=== PATIENT | male | born 1995 | race American Indian/Alaskan Native ===

== ENCOUNTER 2017-06-06 13:28 | Emergency (ER) | payer OTHER ==
[2017-06-06 13:38] VITALS: BP 127/90
--- NOTE | 2017-06-06 15:10 | XRay Report ---
FINAL REPORT EXAM: XR RIBS UNILAT 2V RT HISTORY: rib injury TECHNIQUE: PA view of the chest and 3 views of the right ribs PRIORS: None. FINDINGS: There is no evidence for acute rib fracture or other bony pathologic abnormality in the right ribs. On the chest film, the lungs are clear without evidence for infiltrate, effusion, or pneumothorax. The cardiomediastinal silhouette is normal . IMPRESSION: No acute abnormality in the right ribs or chest.
--- NOTE | 2017-06-06 16:47 | Emergency Department Report ---
HPI - General Chief Complaint: Pain General Time Seen by Provider: 06/06/17 16:34 - HPI HPI: Patient reports that he hit his right rib area on car door while he was at work. Reporting pain 6 out of 10 worse with touch. No [id number] medication taken. He also reviewed report that there is a small bruise to the site. He denies any other injuries. ED Past Medical Hx - Past Medical History Previous Medical History?: No - Surgical History Past Surgical History?: No - Family History Family history: no significant - Social History Smoking Status: Never Smoker Substance Use Type: None - Medications Home Medications: Home Medications Medication Instructions Recorded Confirmed Last Taken Type Ibuprofen [Motrin] 600 mg PO Q8H PRN 4 Days #12 tablet 06/06/17 Unknown Rx ED Review of Systems ROS: Stated complaint: RIGHT SIDE RIB PAIN Other details as noted in HPI Comment: All other systems reviewed and negative Constitutional: no symptoms reported Respiratory: no symptoms reported Cardiovascular: denies: chest pain, palpitations, edema, syncope Gastrointestinal: denies: abdominal pain, nausea, vomiting, diarrhea, constipation Musculoskeletal: other (right anterior rib pain). denies: back pain, joint swelling, arthralgia, myalgia Skin: other (report bruising to her right anterior rib) Neurological: denies: headache, numbness, paresthesias, confusion, abnormal gait , vertigo Physical Exam - Physical Exam Vital Signs: Vital Signs 06/06/17 06/06/17 13:34 16:14 Temperature 97.9 F Pulse Rate 82 74 Respiratory 16 Rate Blood Pressure 127/90 O2 Sat by Pulse 97 100 Oximetry General: This is a 21-year-old male well-nourished well-developed in no acute distress Physical Exam: Head: Normocephalic, atraumatic, no abrasion, no bruising and no contusion. Eyes: Biateral pupils equal and reactive to light, bilateral EOM intact.. Bilateral conjunctival and sclera without injection, normal accommodation. Neck: Supple, No Cervical adenopathy, full range of motion and no C-spine tenderness. No swelling or tracheal deviation normal reflexes Cardiovascular: S1, S2. Regular rate and rhythm. No murmur. Capillary refill is less then 3 seconds. Lungs: Clear to auscultate bilaterally. No rhonchi, wheezes or rales. No chest wall tenderness. Positive chest contusion anteriorly. Bruising and/ contusion located to distal anterior rib laterally towards axilla line. MSK: Strength 5/5 in all extremities. No joint deformity or crepitus. Normal inspection. Full range of motion to all extremities. No laceration, abrasion or ecchymotic area noted. Patient able to fully flex and extend bilateral knees without any difficulties. Bilateral knees nontender to palpate. Abdomen: Non-tender to palpate in all quadrants, no guarding or rebound tenderness, positive bowel sounds in all quadrants. No CVA tenderness. No hernia, bruit or mass. No rigidity or distention. Extremities: No clubbing, cyanosis or edema. +2 pulses. No neurovascular compromise Skin: Clean, dry and intact. Small abrasion noted to anterior rib laterally, distal right. Back: No vertebral tenderness, no paraspinal tenderness. Ambulates difficulty. ED Course Vital Signs 06/06/17 06/06/17 13:34 16:14 Temperature 97.9 F Pulse Rate 82 74 Respiratory 16 Rate Blood Pressure 127/90 O2 Sat by Pulse 97 100 Oximetry - Reevaluation(s) Reevaluation #1: 06/07/17 07:24 Patient did not want any pain medication. Abrasions are cleansed with normal saline and Neosporin ointment placement site followed by a dry sterile dressing. ED Medical Decision Making - Radiology Data Radiology results: report reviewed X-ray right rib reveals no acute fracture. No soft tissue swelling mentioned. - Medical Decision Making ED course: Patient here status post injury to right anterior rib with small abrasion. He said the car door hit his rib area. X-ray reveals no acute fracture or no mention of soft tissue swelling. Patient did not want any pain medication in emergency room. He had abrasion to injured area which was cleansed with normal saline and Neosporin ointment placed followed by dry sterile dressing. Patient discharged home in stable condition with his family with prescription for Motrin and to follow-up with primary care. Patient didn' t said that he received tetanus vaccine last year. Critical care attestation.: If time is entered above; I have spent that time in minutes in the direct care of this critically ill patient, excluding procedure time. ED Disposition Clinical Impression: Rib pain on right side Contusion of rib on right side Qualifiers: Encounter type: initial encounter Qualified Code(s): S20.211A - Contusion of right front wall of thorax, initial encounter Abrasion of front wall of thorax Qualifiers: Encounter type: initial encounter Laterality: right Qualified Code(s): S20.311A - Abrasion of right front wall of thorax, initial encounter Disposition: DC-01 TO HOME OR SELFCARE Is pt being admited?: No Does the pt Need Aspirin: No Condition: Stable Instructions: Contusion in Adults (ED), Abrasion (ED), RICE Therapy (ED) Additional Instructions: Follow-up the primary care physician in 2-3 days status post contusion and abrasion Take Motrin this will help her get pain Apply ice to affected area 2-3 times a day Follow rice protocol Prescriptions: Ibuprofen [Motrin] 600 mg PO Q8H PRN 4 Days #12 tablet PRN Reason: Pain Referrals: PRIMARY CARE,MD [Primary Care Provider] - 2-3 Days [facility] [Outside] - 2-3 Days Forms: Accompanied Note, Work/School Release Form(ED)
[2017-06-06] MEDS ORDERED: TRIPLE ANTIBIOTIC TP ONE (16:53)
== END 2017-06-06 16:57 | disposition home or self-care (01) ==
LOC: ED 13:28
DX: S20.211A Contusion of right front wall of thorax, initial encounter (principal); W22.8XXA Striking against or struck by other objects, initial encounter; Y93.89 Activity, other specified; Y99.0 Civilian activity done for income or pay; Y92.69 Other specified industrial and construction area as the place of occurrence of the external cause
CPT/HCPCS: 99283

== ENCOUNTER → 2020-03-20 20:18 | Emergency (ER) | payer SELFPAY | END | disposition left against medical advice (07) | LOC: ED 20:18 | DX: Z53.21 Procedure and treatment not carried out due to patient leaving prior to being seen by health care provider (principal) ==